=== PATIENT | male | born 1975 | race Caucasian/White ===

== ENCOUNTER 2016-05-14 12:32 | Emergency (ER) | payer MEDICAID, OTHER ==
[~2016-05-14] VITALS: Ht 172.7 cm; Wt 95.7 kg
[~2016-05-14 12:32] MED LIST: BENZ100 PO; FLUT50SP EACH NARE
[2016-05-14 12:46] VITALS: BP 146/82; PULSE 65; RESP 16; TEMP 98.8; O2SAT 99
--- NOTE | 2016-05-14 14:34 | PD ---
HPI Chief Complaint: Cold / Flu Symptoms Time Seen by Provider: 14:14 Travel History International Travel<30 days: No Contact w/Intl Traveler<30days: No Traveled to known affect area: No History of Present Illness HPI 41yo M with no PMH presents to the ED with c/o persistent cough for 3 weeks. Pt states cough is worst when he lies down. +Nasal congestion. Pt was seen here at [facility] 04/17/16 and diagnosed with viral syndrome but did not fill his prescription. Denies any fever, chest pain, sob, n/v, abdominal pain, weakness or numbness. PFSH Past Medical History Asthma: Yes (SPORTS INDUCED) Cancer: No Cardiovascular Problems: No Diminished Hearing: No Endocrine: No Genitourinary: No Immune Disorder: No Musculoskeletal: No Neurologic: No Psychiatric: No Reproductive: No Respiratory: Yes Immunizations Current: Yes Tetanus Vaccination: < 5 Years Influenza Vaccination: No Past Surgical History Abdominal Surgery: Yes Appendectomy: Yes Cholecystectomy: Yes Pacemaker: No Other Surgery: Yes Social History Alcohol Use: No Tobacco Use: No Substance Use: No Allergies-Medications (Allergen,Severity, Reaction): Coded Allergies: No Known Allergies (Unverified , 05/14/16) Reported Meds & Prescriptions Reported Meds & Active Scripts Active Fluticasone Nasal [place] 50 Mcg/Act Naspr 100 Mcg EACH NARE DAILY 50 mcg/spray Tessalon Perles (Benzonatate) 100 Mg Cap 100 Mg PO TID PRN Review of Systems Except as stated in HPI: all other systems reviewed are Neg Physical Exam Narrative GENERAL: 41yo M not in distress. SKIN: Warm and dry. HEAD: Atraumatic. Normocephalic. EYES: Pupils equal and round. No scleral icterus. No injection or drainage. ENT: +Edema in nasal turbinate. Throat: No exudate or edema. Uvula midline. NECK: Trachea midline. No JVD. CARDIOVASCULAR: Regular rate and rhythm. No murmur appreciated. RESPIRATORY: No accessory muscle use. Clear to auscultation. Breath sounds equal bilaterally. GASTROINTESTINAL: Abdomen soft, non-tender, nondistended. No rebound tenderness or guarding. MUSCULOSKELETAL: No obvious deformities. No clubbing. No cyanosis. No edema. NEUROLOGICAL: Awake and alert. No obvious cranial nerve deficits. Motor grossly within normal limits. Normal speech. PSYCHIATRIC: Appropriate mood and affect; insight and judgment normal. Data Data Last Documented VS Vital Signs Date Time Temp Pulse Resp B/P Pulse Ox O2 Delivery O2 Flow Rate FiO2 05/14/16 13:55 20 99 05/14/16 12:46 98.8 65 146/82 Orders Chest, Ap & Lat (05/14/16 ) Albuterol Neb (Albuterol Neb) (05/14/16 14:45) Guaifen-Cod 200-20 Mg/10ml Liq (Robituss (05/14/16 14:45) MDM Medical Decision Making Medical Screen Exam Complete: Yes Emergency Medical Condition: Yes Interpretation(s) Last Impressions Chest X-Ray 05/14/16 0000 Signed Impressions: Service Date/Time: Saturday, May 14, 2016 14:29 - CONCLUSION: Normal examination. Kevin Nur Jr., MD Differential Diagnosis Asthma vs. post nasal drip vs. bronchitis vs. PNA Narrative Course 41yo M with persistent cough for over 3 weeks. Nontoxic appearing. CXR negative. VS stable. Pt given robitussin and albuterol neb and feels a little better. Return precautions given. Diagnosis Primary Impression: Cough Patient Instructions: General Instructions Departure Forms: Tests/Procedures Additional Instructions: Please follow up with your PMD in 3-7 days. Return to the ED if your symptoms worsen. Med/Other Pt SpecificInfo: Prescription(s) given Scripts Dextromethorphan Polistirex Liq (Robitussin 12 Hour Cough Liq)30 Mg/5 Ml Sus10 Ml PO Q12H PRN (COUGH) 7 Days Ref 0 Prov:Kathie Merida DO 05/14/16 Fluticasone Nasal [place] 50 Mcg/Act Naspr50 Mcg EACH NARE BID #1 BOTTLE Ref 0 50 mcg/spray Prov:Kathie Merida DO 05/14/16 Disposition: 01 DISCHARGE HOME Condition: Stable Kathie Merida DO May 14, 2016 14:34
[2016-05-14] MEDS ORDERED: guaiFENesin/CODEINE SYRUP 200 MG/20 MG/10 ML CUP PO ONE (14:45)
[2016-05-14] MEDS ORDERED: RESP: ALBUTEROL 2.5 MG/3 ML NEB (SCH) NEB ONE (14:45)
--- NOTE | 2016-05-14 15:22 | RADHPO ---
EXAM DATE/TIME: 05/14/2016 14:29 [facility] COMPARISON: No previous studies available for comparison. INDICATIONS : Cough. MEDICAL HISTORY : None. SURGICAL HISTORY : None. ENCOUNTER: Initial ACUITY: 3 weeks PAIN SCORE: 0/10 LOCATION: Bilateral chest FINDINGS: AP and lateral views of the chest demonstrate the lungs to be symmetrically aerated without evidence of mass, infiltrate or effusion. The cardiomediastinal contours are unremarkable. Osseous structure s are intact. CONCLUSION: Normal examination. Kevin Nur Jr., MD on May 14, 2016 at 15:17 Board Certified Radiologist. This report was verified electronically.
[2016-05-14] MEDS ORDERED: FLUT50SP EACH NARE (16:07)
[2016-05-14] MEDS ORDERED: DEXT1SUS PO (16:07)
== END 2016-05-14 16:14 | disposition home or self-care (01) ==
LOC: PHED 12:32 → PHEFT 16:14
DX: R05 Cough (principal)
CPT/HCPCS: 71020; 94664; 99283; J7613

== ENCOUNTER 2016-07-01 21:11 | Emergency (ER) | payer MEDICAID ==
[~2016-07-01] VITALS: Ht 172.7 cm; Wt 94.0 kg
[~2016-07-01 21:11] MED LIST changes: +DEXT1SUS PO
[2016-07-01 21:22] VITALS: BP 121/80; PULSE 88; RESP 20; TEMP 99.3; O2SAT 97
[2016-07-01] MEDS ORDERED: ZITHTAB PO (23:54)
[2016-07-01] MEDS ORDERED: PHENERGAN W CODEIN PO (23:55)
--- NOTE | 2016-07-01 23:55 | PD ---
HPI Chief Complaint: Cold / Flu Symptoms Time Seen by Provider: 23:38 Travel History International Travel<30 days: No Contact w/Intl Traveler<30days: No Traveled to known affect area: No History of Present Illness HPI 41-year-old male complains of headache, fever chills, sore throat, coughing congestion, body ache. Patient states the symptoms started yesterday. Patient denies any abdominal pain. Patient denies any nausea vomiting diarrhea. Patient denied dysuria or frequency. PFSH Past Medical History Asthma: Yes (SPORTS INDUCED) Cancer: No Cardiovascular Problems: No Diminished Hearing: No Endocrine: No Genitourinary: No Immune Disorder: No Musculoskeletal: No Neurologic: No Psychiatric: No Reproductive: No Respiratory: Yes Immunizations Current: Yes Past Surgical History Abdominal Surgery: Yes Appendectomy: Yes Cholecystectomy: Yes Pacemaker: No Other Surgery: Yes Social History Alcohol Use: No Tobacco Use: No Substance Use: No Allergies-Medications (Allergen,Severity, Reaction): Coded Allergies: No Known Allergies (Unverified , 05/14/16) Reported Meds & Prescriptions Reported Meds & Active Scripts Active Robitussin 12 Hour Cough Liq (Dextromethorphan Polistirex Liq) 30 Mg/5 Ml Nicole 10 Ml PO Q12H PRN 7 Days Fluticasone Nasal [place] 50 Mcg/Act Naspr 50 Mcg EACH NARE BID 50 mcg/spray Fluticasone Nasal [place] 50 Mcg/Act Naspr 100 Mcg EACH NARE DAILY 50 mcg/spray Tessalon Perles (Benzonatate) 100 Mg Cap 100 Mg PO TID PRN Review of Systems General / Constitutional: Positive: Fever, Chills Eyes: No: Visual changes HENT: Positive: Headaches Cardiovascular: No: Chest Pain or Discomfort Respiratory: Positive: Cough, No: Shortness of Breath Gastrointestinal: No: Abdominal Pain Genitourinary: No: Dysuria Musculoskeletal: No: Pain Skin: No Rash Neurologic: No: Weakness Psychiatric: No: Depression Endocrine: No: Polydipsia Hematologic/Lymphatic: No: Easy Bruising Physical Exam Narrative GENERAL: Well-nourished, well-developed patient. SKIN: Warm and dry. HEAD: Normocephalic. EYES: No scleral icterus. No injection or drainage. TM: Clear. Neck side throat: Mild erythematous. NECK: Supple, trachea midline. No JVD or lymphadenopathy. No meningismus CARDIOVASCULAR: Regular rate and rhythm without murmurs, gallops, or rubs. RESPIRATORY: Breath sounds equal bilaterally. No accessory muscle use. GASTROINTESTINAL: Abdomen soft, non-tender, nondistended. MUSCULOSKELETAL: No cyanosis, or edema. BACK: Nontender without obvious deformity. No CVA tenderness. Data Data Last Documented VS Vital Signs Date Time Temp Pulse Resp B/P Pulse Ox O2 Delivery O2 Flow Rate FiO2 07/01/16 21:22 99.3 88 20 121/80 97 Orders Acetaminophen (Tylenol) (07/02/16 00:00) Azithromycin (Zithromax) (07/02/16 00:00) [facility] Medical Decision Making Medical Screen Exam Complete: Yes Emergency Medical Condition: Yes Differential Diagnosis Differential diagnosis including viral syndrome, bronchitis, pneumonia. Narrative Course 41-year-old male with headache, sore throat, coughing, body ache. Tylenol 650 mg by mouth. Zithromax 500 mg by mouth. Diagnosis Primary Impression: Bronchitis Additional Impression: Viral syndrome Patient Instructions: General Instructions Additional Instructions: Tylenol ibuprofen for fever aching pain. Z-Gus as directed. Follow-up with personal physician. Return if persistent problem or worse. Off work for the next 2 days Med/Other Pt SpecificInfo: Prescription(s) given Scripts [Phenergan W Codein] No Conflict Check10 Ml PO Q6HR #120 Prov:Yaya Goldberg MD 07/01/16 Azithromycin (Zithromax Z-Gus)250 Mg [id number] Mg PO DIRECTED #1 DSPK 500 MG (2 tabs) day 1, then 1 tab days 2-5. Prov:Yaya Goldberg MD 07/01/16 Disposition: 01 DISCHARGE HOME Condition: Stable Yaya Goldberg MD Jul 01, 2016 23:55
[2016-07-02] MEDS ORDERED: ACETAMINOPHEN 325 MG TAB PO ONE
[2016-07-02] MEDS ORDERED: AZITHROMYCIN 250 MG TAB PO ONE
[2016-07-02] MEDS ORDERED: AZITHROMYCIN PWD FOR SUSP 1 GM PACKET PO ONE (00:15)
[2016-07-02 00:59] VITALS: BP 131/72; TEMP 98.4
== END 2016-07-02 01:02 | disposition home or self-care (01) ==
LOC: PHED 21:11
DX: J40 Bronchitis, not specified as acute or chronic (principal); B34.9 Viral infection, unspecified
CPT/HCPCS: 99283

== ENCOUNTER 2017-08-24 10:00 | Emergency (ER) | payer MEDICAID ==
[~2017-08-24] VITALS: Ht 177.8 cm; Wt 97.1 kg
[~2017-08-24 10:00] MED LIST changes: +PHENERGAN W CODEIN PO; +ZITHTAB PO
[2017-08-24 10:10] VITALS: BP 143/85; PULSE 63; RESP 18; TEMP 99; O2SAT 98
[2017-08-24] MEDS ORDERED: EFIN1SOL TOPICAL (10:39)
--- NOTE | 2017-08-24 10:40 | PD ---
HPI Chief Complaint: Skin Problem Time Seen by Provider: 10:24 Travel History International Travel<30 days: No Contact w/Intl Traveler<30days: No Traveled to known affect area: No History of Present Illness HPI 42-year-old male presents to the emergency department for evaluation of right great toenail discoloration and pain that started 1 month ago. He states he has had this intermittent issue since he was 8 years old. He has not followed up with a primary care physician for this issue. No other symptoms or complaints. Mild severity. PFSH Past Medical History Asthma: Yes (SPORTS INDUCED) Cancer: No Cardiovascular Problems: No Diminished Hearing: No Endocrine: No Genitourinary: No Immune Disorder: No Musculoskeletal: No Neurologic: No Psychiatric: No Reproductive: No Respiratory: Yes Immunizations Current: Yes Past Surgical History Abdominal Surgery: Yes Appendectomy: Yes Cholecystectomy: Yes Pacemaker: No Other Surgery: Yes Social History Alcohol Use: No Tobacco Use: No Substance Use: No Allergies-Medications (Allergen,Severity, Reaction): Coded Allergies: No Known Allergies (Unverified Adverse Reaction, Unknown, 08/24/17) Reported Meds & Prescriptions Reported Meds & Active Scripts Active Jublia Topical (Efinaconazole Topical) 10% Soln 1 Applic TOPICAL DAILY Apply to toenails Review of Systems Except as stated in HPI: all other systems reviewed are Neg Physical Exam Narrative GENERAL: Well-nourished, well-developed male patient, afebrile. SKIN: Focused skin assessment warm/dry. Right great toenail is discolored and cracking consistent with onychomycosis. No evidence of cellulitis. No skin erythema. No evidence of paronychia. HEAD: Normocephalic. Atraumatic EYES: No scleral icterus. No injection or drainage. NECK: Supple, trachea midline. No JVD or lymphadenopathy. CARDIOVASCULAR: Regular rate and rhythm without murmurs, gallops, or rubs. RESPIRATORY: Breath sounds equal bilaterally. No accessory muscle use. Lung sounds are clear to auscultation peer MUSCULOSKELETAL: No cyanosis, or edema. Data Data Last Documented VS Vital Signs Date Time Temp Pulse Resp B/P (MAP) Pulse Ox O2 Delivery O2 Flow Rate FiO2 08/24/17 10:10 99.0 63 18 143/85 (104) 98 Orders Orders Ed Discharge Order (5/5/18 10:41) MDM Medical Decision Making Medical Screen Exam Complete: Yes Emergency Medical Condition: Yes Medical Record Reviewed: Yes Differential Diagnosis Onychomycosis versus paronychia versus cellulitis Narrative Course 42-year-old male presents to the emergency department for evaluation of discolored and cracking right great toenail. His exam is consistent with onychomycosis. He is instructed to follow-up with a primary care physician. He will be discharged with prescription for topical antifungal treatment. The patient was discharged in stable condition with instructions, including return instructions and follow up instructions. Diagnosis Primary Impression: Onychomycosis Referrals: [facility] call for appointment Patient Instructions: General Instructions Departure Forms: Tests/Procedures, Work Release Enter return to work date: August 25, 2017 Additional Instructions: Use topical antifungal treatment as directed. Follow-up with a primary care physician. Return to the emergency department for any acute worsening of symptoms. Med/Other Pt SpecificInfo: Prescription(s) given Scripts Efinaconazole Topical (Jublia Topical) 10% Soln 1 APPLIC TOPICAL DAILY for Fungal Infection, #8 ML 0 Refills Apply to toenails Prov: Cele Ball 08/24/17 Disposition: 01 DISCHARGE HOME Condition: Stable Cele Ball August 24, 2017 10:40
== END 2017-08-24 10:47 | disposition home or self-care (01) ==
LOC: PHEFT 10:00
DX: B35.1 Tinea unguium (principal); J45.909 Unspecified asthma, uncomplicated
CPT/HCPCS: 99283